=== PATIENT | male | born 1995 | race Caucasian/White ===

== ENCOUNTER 2017-11-17 21:50 | Emergency (ER) | payer MEDICARE ==
[2017-11-17 22:15] VITALS: BP 125/78; O2SAT 100
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
[2017-11-17 23:04] VITALS: PULSE 65
--- NOTE | 2017-11-18 09:17 | XRAY ---
Indication: Midarm pain following injury. Comparison: None 2 views of the right humerus obtained. No bony, articular, or soft tissue abnormalities.
== END 2017-11-17 22:52 | disposition home or self-care (01) ==
LOC: ED 21:50
DX: S40.021A Contusion of right upper arm, initial encounter (principal); W22.8XXA Striking against or struck by other objects, initial encounter; Y92.008 Other place in unspecified non-institutional (private) residence as the place of occurrence of the external cause
CPT/HCPCS: 73060; 99283